=== PATIENT | female | born 1970 | race Caucasian/White ===

== ENCOUNTER 2018-11-02 08:14 | Emergency (ER) | payer BC ==
[~2018-11-02] VITALS: Ht 167.6 cm; Wt 61.2 kg
--- OUTSIDE RECORDS SUMMARY | 2018-11-02 08:20 | XMS REPORT | Continuity of Care Document ---
Author Organization Unknown Address Unknown Phone Unavailable Allergies There is no data. Medications There is no data. Problems Date Dx Coded Attending Type Code Diagnosis Diagnosed By 12/28/2015 ISABELLE PAYAN DC Ot M54.2 CERVICALGIA 08/01/2018 ISABELLE PAYAN DC Ot M54.2 CERVICALGIA Procedures There is no data. Results There is no data. Encounters ACCT No. Visit Date/Time Discharge Status Pt. Type Provider Facility Loc./Unit Complaint [id number] 12/09/2015 13:40:00 12/09/2015 23:59:59 CLS Outpatient ISABELLE PAYAN DC Via [facility] RAD CERVICAL SPINE PAIN W/ RADIATION INTO LT ARM
[2018-11-02 08:48] LABS: BASOPHILS % (AUTO) 1 % (0-10); EOSINOPHILS # (AUTO) 0.1 10^3/uL (0.0-0.3); EOSINOPHILS % (AUTO) 2 % (0-10); HEMATOCRIT 42 % (35-52); HEMOGLOBIN 13.7 G/DL (11.5-16.0); LYMPHOCYTES # (AUTO) 1.8 X 10^3 (1.0-4.0); LYMPHOCYTES % (AUTO) 29 % (12-44); MEAN CORPUSCULAR HEMOGLOBIN 29 PG (25-34); MEAN CORPUSCULAR HGB CONC 33 G/DL (32-36); MEAN CORPUSCULAR VOLUME 88 FL (80-99); MEAN PLATELET VOLUME 11.2 FL (7.4-10.4); MONOCYTES # (AUTO) 0.5 X 10^3 (0.0-1.0); MONOCYTES % (AUTO) 8 % (0-12); NEUTROPHILS # (AUTO) 3.6 X 10^3 (1.8-7.8); NEUTROPHILS % (AUTO) 60 % (42-75); PLATELET COUNT 193 10^3/uL (130-400); RED CELL DISTRIBUTION WIDTH 14.2 % (10.0-14.5)
[2018-11-02 09:00] LABS: BUN/CREATININE RATIO 16; CALCIUM 9.9 MG/DL (8.5-10.1); CARBON DIOXIDE 21 MMOL/L (21-32); CHLORIDE 107 MMOL/L (98-107); GFR ESTIMATED > 60; GLUCOSE 104 MG/DL (70-105); POTASSIUM 3.6 MMOL/L (3.6-5.0); SODIUM 140 MMOL/L (135-145)
--- NOTE | 2018-11-02 09:14 | ED Lower Extremity ---
General Chief Complaint: Lower Extremity Stated Complaint: R LEG PAIN Nursing Triage Note: C/O rt knee and lower leg tenderness and tightness. no injury. ambulating, normal rom, no swelling noted Nursing Sepsis Screen: No Definite Risk Source: patient Exam Limitations: no limitations History of Present Illness Date Seen by Provider: Nov 02, 2018 Time Seen by Provider: 08:21 Initial Comments This 48-year-old woman presents to the emergency room with right lower leg pain that started about one week ago. She cannot identify any particular strain or injury that caused the pain. She feels like there is a tight band around her mid calf. She is concerned about blood clots because she sits a lot at work. She denies any tobacco use. She is not on hormonal therapies. She uses the [facility] for her primary care. She denies any chest pain or shortness of breath. Allergies and Home Medications Allergies Coded Allergies: No Known Drug Allergies (Unverified , 11/02/18) Patient Home Medication List Home Medication List Reviewed: Yes Review of Systems Constitutional: no symptoms reported EENTM: no symptoms reported Respiratory: no symptoms reported Cardiovascular: no symptoms reported Gastrointestinal: no symptoms reported Genitourinary: no symptoms reported Musculoskeletal: see HPI Skin: no symptoms reported Psychiatric/Neurological: No Symptoms Reported Past Zopcqbb-Ittass-Nkuluz Hx Past Med/Social Hx: Reviewed and Corrections made Patient Social History Alcohol Use: Denies Use Recreational Drug Use: No Smoking Status: Never a Smoker 2nd Hand Smoke Exposure: No Recent Foreign Travel: No Contact w/Someone Who Travel: No Recent Infectious Disease Expo: No Recent Hopitalizations: No Physical Abuse: No Sexual Abuse: No Mistreated: No Fear: No Seasonal Allergies Seasonal Allergies: Yes Past Medical History Surgeries: Yes Abdominal (laparoscopic for endometriosis, endometrial polyp resection), Appendectomy, Ear Surgery, Tubal Ligation Respiratory: Yes Asthma Cardiac: No Neurological: No Reproductive Disorders: Yes Female Reproductive Disorders: Endometriosis Genitourinary: No Gastrointestinal: No Musculoskeletal: No Endocrine: Yes (hypoglycemia) HEENT: No Cancer: No Psychosocial: No Integumentary: No Family Medical History Stroke (in an aunt) Physical Exam Vital Signs Vital Signs - First Documented 11/02/18 08:24 Temp 98.1 Pulse 90 Resp 16 B/P (MAP) 150/86 (107) Pulse Ox 100 Capillary Refill : Less Than 3 Seconds Height, Weight, BMI Height: 5'6.00" Weight: 135lbs. oz. 61.039673av; BMI Method:Stated General Appearance: WD/WN, no apparent distress HEENT: PERRL/EOMI, normal ENT inspection Cardiovascular: regular rate, rhythm, no edema, no murmur Respiratory: lungs clear, normal breath sounds, no respiratory distress, no accessory muscle use Legs: right leg soft tissue tenderness (mid calf), right leg other (no erythema, observable swelling, heat, or home in response) Knees: right knee non-tender, right knee normal inspection, right knee normal range of motion, right knee no evidence of injury Ankles: right ankle non-tender, right ankle normal inspection, right ankle normal range of motion, right ankle no evidence of injury Feet: right foot non-tender, right foot normal inspection, right foot normal range of motion, right foot no evidence of injury, right foot other Neurologic/Psychiatric: communications consultant II-XII nml as tested, no motor/sensory deficits, alert, normal mood/affect, oriented x 3 Progress/Results/Core Measures Results/Orders Lab Results Laboratory Tests Test 11/02/18 08:38 11/02/18 08:39 Range/Units White Blood Count 6.0 4.3-11.0 10^3/uL Red Blood Count 4.73 4.35-5.85 10^6/uL Hemoglobin 13.7 11.5-16.0 G/DL Hematocrit 42 35-52 % Mean Corpuscular Volume 88 80-99 FL Mean Corpuscular Hemoglobin 29 25-34 PG Mean Corpuscular Hemoglobin Concent 33 32-36 G/DL Red Cell Distribution Width 14.2 10.0-14.5 % Platelet Count 193 130-400 10^3/uL Mean Platelet Volume 11.2 H 7.4-10.4 FL Neutrophils (%) (Auto) 60 42-75 % Lymphocytes (%) (Auto) 29 12-44 % Monocytes (%) (Auto) 8 0-12 % Eosinophils (%) (Auto) 2 0-10 % Basophils (%) (Auto) 1 0-10 % Neutrophils # (Auto) 3.6 1.8-7.8 X 10^3 Lymphocytes # (Auto) 1.8 1.0-4.0 X 10^3 Monocytes # (Auto) 0.5 0.0-1.0 X 10^3 Eosinophils # (Auto) 0.1 0.0-0.3 10^3/uL Basophils # (Auto) 0.0 0.0-0.1 10^3/uL D-Dimer < 0.27 0.00-0.49 UG/ML Sodium Level 140 135-145 MMOL/L Potassium Level 3.6 3.6-5.0 MMOL/L Chloride Level 107 98-107 MMOL/L Carbon Dioxide Level 21 21-32 MMOL/L Anion Gap 12 5-14 MMOL/L Blood Urea Nitrogen 13 7-18 MG/DL Creatinine 0.80 0.60-1.30 MG/DL Estimat Glomerular Filtration Rate > 60 BUN/Creatinine Ratio 16 Glucose Level 104 70-105 MG/DL Calcium Level 9.9 8.5-10.1 MG/DL My Orders Orders - ISRAEL TABOR MD Basic Metabolic Panel (11/02/18 08:44) Cbc With Automated Diff (11/02/18 08:44) Fibrin Degradation Products (11/02/18 08:44) Vital Signs/I&O 11/02/18 11/02/18 08:24 09:41 Temp 98.1 Pulse 90 81 Resp 16 18 B/P (MAP) 150/86 (107) 118/71 (87) Pulse Ox 100 99 Blood Pressure Mean: 107 Progress Progress Note : Progress Note Labs including d-dimer were unremarkable. Exam was not convincing for DVT or other significant pathology. Patient was discharged home to outpatient follow- up if symptoms do not improve with NSAID therapy. Departure Impression Primary Impression: Right leg pain Disposition: 01 HOME, SELF-CARE Condition: Against Medical Advice Departure-Patient Inst. Decision time for Depature: 09:13 Referrals: NO,LOCAL PHYSICIAN (PCP/Family) Primary Care Physician Patient Instructions: NO INSTRUCTIONS GIVEN Add. Discharge Instructions: For pain you may take ibuprofen up to 600 mg every 6 hours and/or Tylenol (acetaminophen) up to 1000 mg every 6 hours. Elevation may help with pain in your leg as well. If pain does not improve over the next few days, please follow-up with your primary care provider. Return to the emergency room if you have worsening symptoms. All discharge instructions reviewed with patient and/or family. Voiced understanding. ISRAEL TABOR MD Nov 02, 2018 09:14
[2018-11-02 09:41] VITALS: BP 118/71
== END 2018-11-02 09:33 | disposition home or self-care (01) ==
LOC: EDUNIT# 08:14 → ER 08:15
DX: M79.661 Pain in right lower leg (principal); J45.909 Unspecified asthma, uncomplicated; Z90.49 Acquired absence of other specified parts of digestive tract; Z98.51 Tubal ligation status
CPT/HCPCS: 36415; 80048; 85025; 85379; 99282

== ENCOUNTER 2021-12-08 14:02 | Emergency (ER) | payer OTHER, BC ==
[~2021-12-08] VITALS: Ht 167.7 cm; Wt 68.0 kg
[2021-12-08] MEDS ORDERED: fentaNYL INJ 100 MCG/2 ML AMP ONE (14:12)
[2021-12-08 14:13] LABS: BASOPHILS % (AUTO) 0 % (0-10); EOSINOPHILS # (AUTO) 0.1 10^3/uL (0.0-0.3); EOSINOPHILS % (AUTO) 1 % (0-10); HEMATOCRIT 39 % (35-52); HEMOGLOBIN 13.1 g/dL (11.5-16.0); LYMPHOCYTES # (AUTO) 3.1 10^3/uL (1.0-4.0); LYMPHOCYTES % (AUTO) 29 % (12-44); MEAN CORPUSCULAR HEMOGLOBIN 30 pg (25-34); MEAN CORPUSCULAR HGB CONC 34 g/dL (32-36); MEAN CORPUSCULAR VOLUME 90 fL (80-99); MEAN PLATELET VOLUME 11.6 fL (9.0-12.2); MONOCYTES # (AUTO) 0.5 10^3/uL (0.0-1.0); MONOCYTES % (AUTO) 5 % (0-12); NEUTROPHILS # (AUTO) 6.8 10^3/uL (1.8-7.8); NEUTROPHILS % (AUTO) 64 % (42-75); PLATELET COUNT 203 10^3/uL (130-400); WHITE BLOOD COUNT 10.7 10^3/uL (4.3-11.0)
[2021-12-08] MEDS ORDERED: TETANUS,DIPTH,PERTUSS P/F (BOOSTRIX) 0.5 ML VIAL IM ONE (14:15)
[2021-12-08] MEDS ORDERED: fentaNYL INJ 100 MCG/2 ML AMP IVP ONE (14:15)
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
[2021-12-08 14:32] LABS: ALBUMIN 3.9 GM/DL (3.2-4.5); POTASSIUM 3.4 MMOL/L (3.6-5.0)
[2021-12-08 14:34] LABS: CALCIUM 9.1 MG/DL (8.5-10.1)
[2021-12-08 14:35] LABS: TOTAL PROTEIN 6.4 GM/DL (6.4-8.2)
[2021-12-08 14:37] LABS: BILIRUBIN,TOTAL 0.2 MG/DL (0.1-1.0)
[2021-12-08 14:39] LABS: CREATININE SERUM 0.8 MG/DL (0.60-1.30)
[2021-12-08 14:52] LABS: BILIRUBIN,URINE NEGATIVE (NEGATIVE); CLARITY,URINE CLEAR; COLOR,URINE YELLOW; GLUCOSE, URINE (UA) NEGATIVE (NEGATIVE); KETONES,URINE NEGATIVE (NEGATIVE); LEUKOCYTE ESTERASE ,URINE TRACE (NEGATIVE); NITRITE,URINE NEGATIVE (NEGATIVE); PH,URINE 6.5 (5-9); PROTEIN,URINE NEGATIVE (NEGATIVE)
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
[2021-12-08 14:59] LABS: BACTERIA,URINE NEGATIVE /HPF; RBC,URINE RARE /HPF; SQUAMOUS EPITHELIAL CELL,UR RARE /HPF; WBC,URINE RARE /HPF
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
[2021-12-08] MEDS ORDERED: METH-732 PO (15:18)
[2021-12-08 15:50] VITALS: BP 118/51
== END 2021-12-08 15:52 | disposition home or self-care (01) ==
LOC: EDUNIT# 14:02 → ER 14:03
DX: M25.512 Pain in left shoulder (principal); S50.811A Abrasion of right forearm, initial encounter; Z28.310 Unvaccinated for COVID-19; Z23 Encounter for immunization; V48.5XXA Car driver injured in noncollision transport accident in traffic accident, initial encounter; Y92.410 Unspecified street and highway as the place of occurrence of the external cause
CPT/HCPCS: 36415; 70450; 71045; 72125; 72170; 73030; 73080; 73552; 80053; 81000; 85025; 90715; 93005

== ENCOUNTER 2022-04-08 19:28 | Emergency (ER) | payer BC ==
[~2022-04-08] VITALS: Ht 167.7 cm; Wt 68.0 kg
[~2022-04-08 19:28] MED LIST: METH-732 PO
--- NOTE | 2022-04-08 20:35 | Diagnostic Imaging Report ---
INDICATION: Dyspnea, cough. COMPARISON: 12/08/2021. TECHNIQUE: Single radiograph of the chest dated April 08, 2022. FINDINGS: The cardiac silhouette is within normal limits in size. No significant pulmonary vascular congestion. The lungs are clear of focal pulmonary opacity. No pleural effusion. No pneumothorax. No acute osseous abnormality. IMPRESSION: No acute cardiopulmonary abnormality. Dictated by: Dictated on workstation # [id number]
[2022-04-08 20:38] LABS: BASOPHILS % (AUTO) 1 % (0-10); EOSINOPHILS # (AUTO) 0.1 10^3/uL (0.0-0.3); EOSINOPHILS % (AUTO) 2 % (0-10); HEMATOCRIT 42 % (35-52); HEMOGLOBIN 14.2 g/dL (11.5-16.0); LYMPHOCYTES # (AUTO) 3.2 10^3/uL (1.0-4.0); LYMPHOCYTES % (AUTO) 57 % (12-44); MEAN CORPUSCULAR HEMOGLOBIN 30 pg (25-34); MEAN CORPUSCULAR HGB CONC 34 g/dL (32-36); MEAN CORPUSCULAR VOLUME 87 fL (80-99); MEAN PLATELET VOLUME 12.5 fL (9.0-12.2); MONOCYTES # (AUTO) 0.4 10^3/uL (0.0-1.0); MONOCYTES % (AUTO) 8 % (0-12); NEUTROPHILS # (AUTO) 1.8 10^3/uL (1.8-7.8); NEUTROPHILS % (AUTO) 33 % (42-75); PLATELET COUNT 182 10^3/uL (130-400); WHITE BLOOD COUNT 5.6 10^3/uL (4.3-11.0)
[2022-04-08 20:44] LABS: ALANINE AMINOTRANSFERASE 14 U/L (0-55); ALBUMIN 4.5 GM/DL (3.2-4.5); ALKALINE PHOSPHATASE 86 U/L (40-136); BILIRUBIN,TOTAL 0.2 MG/DL (0.1-1.0); BUN/CREATININE RATIO 5; CARBON DIOXIDE 22 MMOL/L (21-32); CHLORIDE 102 MMOL/L (98-107); CREATININE SERUM 0.74 MG/DL (0.60-1.30); GFR ESTIMATED 97; GLUCOSE 105 MG/DL (70-105); POTASSIUM 3.3 MMOL/L (3.6-5.0); SODIUM 138 MMOL/L (135-145); TOTAL PROTEIN 7.8 GM/DL (6.4-8.2)
--- NOTE | 2022-04-08 21:23 | ED Cough/URI ---
General Chief Complaint: Respiratory Problems Stated Complaint: ASTHMA ATTACK Nursing Triage Note: PT AMB TO ED BY POV WITH C/O ASTHMA ATTACK. PT REPORTS SHE HAS BEEN HAVING ASTHMA ATTACKS ALL DAY. PT HAS USED HER ALBUTEROL INHALER 3X THROUGHOUT THE DAY. REPORTS SHE BEGAN HAVING A PRODUCTIVE COUGH SINCE AROUND ON, CONGESTION SINCE SATURDAY. DENIES FEVER, N/V/D. PT NOT IN RESP DISTRESS UPON ARRIVAL. (JOSI PATHAK DO) Allergies and Home Medications Allergies Coded Allergies: erythromycin base (Verified Adverse Reaction, Unknown, Vomiting, 11/02/18) Uncoded Allergies: dairy (Allergy, Unknown, 11/02/18) grains (Allergy, Unknown, 11/02/18) Patient Home Medication List Albuterol Sulfate (Ventolin Hfa) 90 Mcg Hfa.aer.ad, 2 PUFF IH Q4H Prescribed by: JOSI PATHAK on 04/08/222124 Benzonatate (Tessalon Perles) 100 Mg Capsule, 200 MG PO TID Prescribed by: JOSI PATHAK on 04/08/222124 Budesonide (Pulmicort Flexhaler) 180 Mcg Aer.pow.ba, 180 MCG IH BID Prescribed by: JOSI PATHAK on 04/08/222124 Dexamethasone (Dexamethasone) 6 Mg Tablet, 6 MG PO DAILY Prescribed by: JOSI PATHAK on 04/08/222124 Methocarbamol (Methocarbamol) 750 Mg Tablet, 750 MG PO Q6-8HR Prescribed by: TUNDE BARRETT on 12/08/21 151 Promethazine/Dextromethorphan (Promethazine-Dm Syrup) 6.25 Mg-15 Mg/5 Ml Syrup, 5 ML PO Q4H Prescribed by: JOSI PATHAK on 04/08/222124 Past Ywwdnvp-Ozylkh-Rqsrir Hx Patient Social History Tobacco Use?: No Use of E-Cig and/or Vaping dev: No Substance use?: No Alcohol Use?: Yes Alcohol type: Wine Alcohol Frequency: Several times a month Pt feels they are or have been: No (JOSI PATHAK DO) Immunizations Up To Date Influenza Vaccine Up-to-Date: No; Not Current (JOSI PATHAK DO) Seasonal Allergies Seasonal Allergies: Yes (JOSI PATHAK DO) Past Medical History Surgery/Hospitalization HX: ASTHMMA TUBAL LIGATION, APPENTDECTOMY Surgeries: Yes Abdominal, Appendectomy, Ear Surgery, Tubal Ligation Respiratory: Yes Asthma Cardiac: No Neurological: No Reproductive Disorders: Yes Female Reproductive Disorders: Endometriosis Genitourinary: No Gastrointestinal: No Musculoskeletal: No Endocrine: Yes (hypoglycemia) HEENT: No Cancer: No Psychosocial: No Integumentary: No (JOSI PATHAK DO) Family Medical History Stroke (JOSI PATHAK DO) Physical Exam Vital Signs - First Documented 04/08/22 19:30 Temp 36.7 Pulse 83 Resp 18 B/P (MAP) 143/83 (103) Pulse Ox 100 O2 Delivery Room Air (ISRAEL TABOR MD) Capillary Refill : Less Than 3 Seconds (JOSI PATHAK DO) Height: 5'6.00" Weight: 135lbs. oz. [id number]; 24.00 BMI Method:Stated (JOSI PATHAK DO) Focused Exam Lactate Level 04/08/22 20:12: Lactic Acid Level 0.87 (ISRAEL TABOR MD) Lactic Acid Level Laboratory Tests Test 04/08/22 20:12 Lactic Acid Level 0.87 MMOL/L (0.50-2.00) (ISRAEL TABOR MD) Progress/Results/Core Measures Suspected Sepsis SIRS Temperature: Pulse: 83 Respiratory Rate: 18 Laboratory Tests 04/08/22 19:35: White Blood Count 5.6 Blood Pressure 143 /83 Mean: 103 04/08/22 20:12: Lactic Acid Level 0.87 Laboratory Tests 04/08/22 19:35: Creatinine 0.74, Platelet Count 182, Total Bilirubin 0.2 (JOSI PATHAK DO) Results/Orders Lab Results Laboratory Tests Test 04/08/22 19:35 04/08/22 19:39 04/08/22 20:12 Range/Units White Blood Count 5.6 4.3-11.0 10^3/uL Red Blood Count 4.77 3.80-5.11 10^6/uL Hemoglobin 14.2 11.5-16.0 g/dL Hematocrit 42 35-52 % Mean Corpuscular Volume 87 80-99 fL Mean Corpuscular Hemoglobin 30 25-34 pg Mean Corpuscular Hemoglobin Concent 34 32-36 g/dL Red Cell Distribution Width 13.2 10.0-14.5 % Platelet Count 182 130-400 10^3/uL Mean Platelet Volume 12.5 H 9.0-12.2 fL Immature Granulocyte % (Auto) 0 % Neutrophils (%) (Auto) 33 L 42-75 % Lymphocytes (%) (Auto) 57 H 12-44 % Monocytes (%) (Auto) 8 0-12 % Eosinophils (%) (Auto) 2 0-10 % Basophils (%) (Auto) 1 0-10 % Neutrophils # (Auto) 1.8 1.8-7.8 10^3/uL Lymphocytes # (Auto) 3.2 1.0-4.0 10^3/uL Monocytes # (Auto) 0.4 0.0-1.0 10^3/uL Eosinophils # (Auto) 0.1 0.0-0.3 10^3/uL Basophils # (Auto) 0.0 0.0-0.1 10^3/uL Immature Granulocyte # (Auto) 0.0 0.0-0.1 10^3/uL Sodium Level 138 135-145 MMOL/L Potassium Level 3.3 L 3.6-5.0 MMOL/L Chloride Level 102 98-107 MMOL/L Carbon Dioxide Level 22 21-32 MMOL/L Anion Gap 14 5-14 MMOL/L Blood Urea Nitrogen 4 L 7-18 MG/DL Creatinine 0.74 0.60-1.30 MG/DL Estimat Glomerular Filtration Rate 97 BUN/Creatinine Ratio 5 Glucose Level 105 70-105 MG/DL Calcium Level 10.0 8.5-10.1 MG/DL Corrected Calcium 9.6 8.5-10.1 MG/DL Total Bilirubin 0.2 0.1-1.0 MG/DL Aspartate Amino Transf (AST/SGOT) 23 5-34 U/L Alanine Aminotransferase (ALT/SGPT) 14 0-55 U/L Alkaline Phosphatase 86 40-136 U/L Troponin I < 0.028 <0.028 NG/ML B-Type Natriuretic Peptide 11.9 <100.0 PG/ML Total Protein 7.8 6.4-8.2 GM/DL Albumin 4.5 3.2-4.5 GM/DL Procalcitonin 0.02 <0.10 NG/ML Influenza Type A (RT-PCR) Not Detected Not Detecte Influenza Type B (RT-PCR) Not Detected Not Detecte SARS-CoV-2 RNA (RT-PCR) Detected H Not Detecte Lactic Acid Level 0.87 0.50-2.00 MMOL/L (ISRAEL TABOR MD) Micro Results Microbiology 04/08/22 Blood Culture - Preliminary, Resulted No growth 04/08/22 Blood Culture - Preliminary, Resulted No growth (ISRAEL TABOR MD) Vital Signs/I&O 04/08/22 04/08/22 19:30 21:44 Temp 36.7 36.5 Pulse 83 77 Resp 18 20 B/P (MAP) 143/83 (103) 121/71 Pulse Ox 100 97 O2 Delivery Room Air Room Air (ISRAEL TABOR MD) Vital Signs/I&O Capillary Refill : Less Than 3 Seconds (JOSI PATHAK DO) Blood Pressure Mean: 103 Progress Note : Progress Note Received a phone call from [facility] pharmacy regarding availability of Pulmicor t. They were asking for an alternative medication. Generic Flovent 220 mcg was available. An alternative prescription for Flovent HFA 220 mcg 2 puffs twice daily for 1 week was prescribed verbally. (ISRAEL TABOR MD) Departure Impression Primary Impression: COVID-19 virus infection Disposition: 01 HOME, SELF-CARE Condition: Stable Departure-Patient Inst. Decision time for Depature: 21:15 (JOSI PATHAK DO) Referrals: NO,LOCAL PHYSICIAN (PCP/Family) Primary Care Physician Patient Instructions: COVID-19 ED, Preventing the Spread of an Infectious Dis ease Add. Discharge Instructions: HOME, REST TYLENOL 1 GRAM PLUS MOTRIN 800 MG 4 TIMES A DAY FOR PAIN OR FEVER USE ALBUTEROL INHALER WITH SPACER AT ALL TIMES--2 PUFFS EVERY 4 HOURS NEEDED FOR BREATHING LOTS OF CLEAR LIQUIDS QUARANTINE YOURSELF AND ALL HOUSEHOLD MEMBERS FOR 7 DAYS. RETURN TO ER IF YOUR SYMPTOMS WORSEN. All discharge instructions reviewed with patient and/or family. Voiced understanding. Scripts Albuterol Sulfate (Ventolin Hfa) 90 Mcg Hfa.aer.ad 2 PUFF IH Q4H, #1 EA 1 PUFF = 90 MCG Prov: JOSI PATHAK DO 04/08/22 Budesonide (Pulmicort Flexhaler) 180 Mcg Aer.pow.ba 180 MCG IH BID, #1 EACH Prov: JOSI PATHAK DO 04/08/22 Promethazine/Dextromethorphan (Promethazine-Dm Syrup) 6.25 Mg-15 Mg/5 Ml Syrup 5 ML PO Q4H for Cough, #200 ML Prov: JOSI PATHAK DO 04/08/22 Benzonatate (TESSALON PERLES) 100 Mg Capsule 200 MG PO TID, #50 CAP Prov: JOSI PATHAK DO 04/08/22 Dexamethasone (Dexamethasone) 6 Mg Tablet 6 MG PO DAILY, #10 TAB Prov: JOSI PATHAK DO 04/08/22 JOSI PATHAK DO Apr 08, 2022 21:23 ISRAEL TABOR MD Apr 10, 2022 11:51
[2022-04-08] MEDS ORDERED: BUDE180A IH (21:25)
[2022-04-08] MEDS ORDERED: DEXA6TAB PO (21:25)
[2022-04-08] MEDS ORDERED: ALBU8.5H6 IH (21:25)
[2022-04-08] MEDS ORDERED: BENZ100C18 PO (21:25)
[2022-04-08] MEDS ORDERED: D-ME473S11 PO (21:25)
[2022-04-08] MEDS ORDERED: BENZONATATE 100 MG (TESSALON) CAPSULE PO SCH (21:30)
[2022-04-08 21:44] VITALS: BP 121/71
== END 2022-04-08 21:44 | disposition home or self-care (01) ==
LOC: EDUNIT# 19:28 → ER 19:31
DX: U07.1 COVID-19 (principal); R05.9 Cough, unspecified; Z28.310 Unvaccinated for COVID-19
CPT/HCPCS: 36415; 71045; 80053; 83605; 83880; 84145; 84484; 85025; 87040; 87636; 93005; 93041